=== PATIENT | female | born 1990 | race Caucasian/White ===

== ENCOUNTER 2021-05-12 15:18 | Day surgery (SDC) | payer BC ==
[2021-05-12] MEDS ORDERED: hydrALAZINE 20 MG/ML VIAL SLOW IVP PRN (16:01)
[2021-05-12 16:27] LABS: Bilirubin Neg (Negative); Blood, Urine 25 (Negative); Clarity Clear (Clear); Glucose, Urine (Dipstick) Normal (Negative); Ketone, Urine Negative (Negative); Leukocyte Negative (Negative); Nitrite Negative (Negative); Protein, Urine (Dipstick) Negative (Neg-Trace); Specific Gravity, Urine 1.005 (1.002-1.036); Urobilinogen Normal mg/dL (Less than 2); pH, Urine 6.5 (5.0-9.0)
[2021-05-12] MEDS ORDERED: Ondansetron ODT 8 MG TAB SL SCH (16:30)
[2021-05-12 16:32] LABS: Urine Culture Reflex No No
[2021-05-12 16:34] LABS: Bacteria/HPF 1+ HPF (None Seen); RBC/HPF 0-3 HPF (0-3); Squamous Epithelial 0-3 HPF (0-3); WBC/HPF 0-3 HPF (0-3)
[2021-05-12] MEDS ORDERED: Ondansetron ODT 4 MG TAB PO SCH (17:00)
[2021-05-12] MEDS ORDERED: Morphine 4 MG/ML VIAL SLOW IVP SCH (17:30)
[2021-05-12] MEDS ORDERED: Morphine 4 MG/ML VIAL IM SCH (17:45)
[2021-05-12] MEDS ORDERED: Morphine 4 MG/ML VIAL ONE (17:52)
== END 2021-05-12 18:34 | disposition home or self-care (01) ==
LOC: CSHLD/OP 15:18
PROVIDERS: ATTEND Student in an Organized Health Care Education/Training Program
DX: O99.891 Other specified diseases and conditions complicating pregnancy (principal); N13.30 Unspecified hydronephrosis; R30.0 Dysuria; M54.9 Dorsalgia, unspecified; Z3A.21 21 weeks gestation of pregnancy
CPT/HCPCS: 76770; 81001; 87086; 96372; 99282; J2270; Q0162

== ENCOUNTER 2021-09-06 13:26 | Outpatient (CLI) | payer BC ==
[2021-09-07 14:16] LABS: SARS-CoV-2 PCR by NAA Not Detected (NotDetected)
== END 2021-09-06 13:27 | disposition home or self-care (01) ==
LOC: CSHLAB 13:26
PROVIDERS: ATTEND Student in an Organized Health Care Education/Training Program
DX: Z20.822 Contact with and (suspected) exposure to COVID-19 (principal)
CPT/HCPCS: U0003; U0005

== ENCOUNTER 2021-09-11 05:30 | Inpatient (IN) | payer BC ==
[2021-09-11 06:20] VITALS: BMI 28.4
[2021-09-11] MEDS ORDERED: NS w/ Oxytocin 30 units 500 ML ONE (07:08)
[2021-09-11] MEDS ORDERED: Penicillin G Potassium 5 MILL.UNITS VIAL ONE (07:15)
[2021-09-11] MEDS ORDERED: Acetaminophen 500 MG TAB PO PRN (07:23)
[2021-09-11] MEDS ORDERED: Ondansetron PF 4 MG/2 ML Vial IVP PRN ×3 (07:23→17:02)
[2021-09-11] MEDS ORDERED: HYDROcodone/Acetaminophen 5/325 mg Tablet PO PRN ×3 (07:23→17:02)
[2021-09-11] MEDS ORDERED: Promethazine HCl 25 MG/ML VIAL IM PRN ×3 (07:23→17:02)
[2021-09-11] MEDS ORDERED: Methylergonovine 0.2 MG/ML VIAL IM PRN (07:23)
[2021-09-11] MEDS ORDERED: Butorphanol Tartrate 1 MG/ML VIAL SLOW IVP PRN (07:23)
[2021-09-11] MEDS ORDERED: Lidocaine 1% (PF) 30 ML VIAL SC PRN (07:23)
[2021-09-11] MEDS ORDERED: Diphenoxylate HCl/Atropine Tablet PO PRN (07:23)
[2021-09-11] MEDS ORDERED: hydrALAZINE 20 MG/ML VIAL SLOW IVP PRN ×2 (07:23→17:02)
[2021-09-11] MEDS ORDERED: Misoprostol 200 MCG TAB PR PRN (07:23)
[2021-09-11] MEDS ORDERED: Carboprost 250 MCG/ML AMP IM PRN (07:23)
[2021-09-11] MEDS ORDERED: Ibuprofen 800 MG TAB PO PRN (07:23)
[2021-09-11] MEDS ORDERED: Lactated Ringer's 1,000 ML IV SCH (07:30)
[2021-09-11] MEDS ORDERED: NS w/ Oxytocin 30 units 500 ML IVPB SCH (07:30)
[2021-09-11] MEDS ORDERED: NS w/ Oxytocin 30 units 500 ML IV SCH (07:30)
[2021-09-11] MEDS ORDERED: Fentanyl 2 mcg/Bup 0.1% Cadd 100 ML ONE (08:33)
[2021-09-11 08:35] LABS: Hemoglobin 11.9 g/dL (12.0-15.5); Mean Corpuscular Hemoglobin 26.5 pg (27.0-33.0); Mean Corpuscular Volume 80.4 fl (81.6-98.3); Mean Platelet Volume 10.8 fl (7.4-10.4); Platelet Count 271 10x3/uL (150-450); RBC Distribution Width 13.1 % (11.5-14.5); Red Blood Cell (RBC) Count 4.49 10x6/uL (3.90-5.03); White Blood Cell (WBC) Count 13.4 10x3/uL (3.5-10.5)
[2021-09-11 09:18] LABS: Syphilis Antibody Nonreactive (Nonreactive); Syphilis Antibody Index 0.02 S/CO (<1.00 Non-Reactive)
[2021-09-11 09:19] LABS: Hep B Surf Ag Non-Reactive S/CO (NonReactive)
[2021-09-11 09:20] LABS: HBSAg Index 0.17 S/CO (0-0.99)
[2021-09-11] MEDS ORDERED: ePHEDrine Sulfate 50 MG/10 ML VIAL SLOW IVP PRN (09:30)
[2021-09-11] MEDS ORDERED: Fentanyl 2 mcg/Bupivacaine 0.1% Cassette 100 ML EPIDURAL SCH (09:30)
[2021-09-11] MEDS ORDERED: Lactated Ringer's 500 ML IV PRN (09:30)
[2021-09-11] MEDS ORDERED: diphenhydrAMINE 50 MG/ML VIAL IVP PRN (09:30)
[2021-09-11] MEDS ORDERED: Hydrocerin (Eucerin) Cream 120 gm Jar TOP PRN (09:30)
[2021-09-11] MEDS ORDERED: Acetaminophen 325 MG TAB PO PRN (09:30)
[2021-09-11] MEDS ORDERED: Naloxone HCl 0.4 mg/ml Vial IVP PRN ×2 (09:30)
[2021-09-11] MEDS ORDERED: Communication Order-Pharmacy FS SCH (09:30)
[2021-09-11] MEDS ORDERED: Penicillin G Potassium 5 MILL.UNITS in Sodium Chloride 0.9% 100 ML IVPB SCH (12:30)
[2021-09-11] MEDS ORDERED: Bupivacaine/Epinephrine 0.25% 30 ML VIAL ONE (14:25)
[2021-09-11] MEDS ORDERED: ePHEDrine Sulfate 50 MG/10 ML VIAL ONE (14:25)
[2021-09-11] MEDS ORDERED: Pen G 2.5 MILL.UNITS/50 ML BAG IVPB SCH (16:30)
[2021-09-11] MEDS ORDERED: Benzocaine-Menthol 82.5 ML CAN TOP PRN (17:02)
[2021-09-11] MEDS ORDERED: Boostrix 0.5 ML (Tdap) VIAL IM ONE (17:02)
[2021-09-11] MEDS ORDERED: Bisacodyl 10 MG SUPP PR PRN (17:02)
[2021-09-11] MEDS ORDERED: Lanolin Ointment 7 GM TUBE TOP PRN (17:02)
[2021-09-11] MEDS ORDERED: diphenhydrAMINE 25 MG CAP PO PRN (17:02)
[2021-09-11] MEDS ORDERED: Preparation H Ointment 28 GM TUBE PR PRN (17:02)
[2021-09-11] MEDS ORDERED: Milk Of Magnesia 30 ML UDCUP PO PRN (17:02)
[2021-09-11] MEDS ORDERED: Zolpidem Tartrate 5 MG TAB PO PRN (17:02)
[2021-09-11] MEDS: Ferrous Sulfate 325 MG TAB PO SCH (18:36)
[2021-09-11] MEDS: Acetaminophen 500 MG TAB PO PRN (19:57)
[2021-09-11] MEDS: Ibuprofen 800 MG TAB PO SCH (21:14)
[2021-09-11] MEDS: Docusate Calcium (SURFAK) 240 MG CAP PO SCH (21:14)
[2021-09-12] MEDS: Acetaminophen 500 MG TAB PO PRN ×2 (04:48→17:07)
[2021-09-12 05:27] LABS: Hemoglobin 9.9 g/dL (12.0-15.5)
[2021-09-12] MEDS: Ibuprofen 800 MG TAB PO SCH ×3 (06:04→21:57)
[2021-09-12] MEDS: Docusate Calcium (SURFAK) 240 MG CAP PO SCH ×2 (09:01→21:56)
[2021-09-12] MEDS: Ferrous Sulfate 325 MG TAB PO SCH ×2 (09:01→17:07)
[2021-09-12] MEDS: Prenatal Vitamin 1 TAB PO SCH (09:03)
[2021-09-13] MEDS: Ibuprofen 800 MG TAB PO SCH ×2 (06:11→15:12)
[2021-09-13] MEDS: Ferrous Sulfate 325 MG TAB PO SCH (07:39)
[2021-09-13] MEDS: Prenatal Vitamin 1 TAB PO SCH (07:39)
[2021-09-13] MEDS: Docusate Calcium (SURFAK) 240 MG CAP PO SCH (07:39)
[2021-09-13 16:50] VITALS: BP 130/77; TEMP 98.4
== END 2021-09-13 07:18 | disposition home or self-care (01) | DRG 807 ==
LOC: CSHLD 05:48 → CSHPED 18:20
PROVIDERS: ADMIT Student in an Organized Health Care Education/Training Program; ATTEND Student in an Organized Health Care Education/Training Program
PROC: 10E0XZZ Delivery of Products of Conception, External Approach (ICD-10-PCS; principal; 2021-09-11)
DX: O62.2 Other uterine inertia (principal); Z37.0 Single live birth; Z3A.39 39 weeks gestation of pregnancy; O90.81 Anemia of the puerperium; D50.0 Iron deficiency anemia secondary to blood loss (chronic)
CPT/HCPCS: 36415; 51702; 85014; 85018; 85027; 86780; 86850; 86900; 86901; 87340; J2210; J2540; J2590

== ENCOUNTER 2023-07-06 09:16 | Emergency (ER) | payer BC ==
[2023-07-06 10:48] LABS: #Monocytes 0.3 10x3/uL (0.0-1.1); %Basophils 0.1 % (0.0-2.0); %Eosinophils 0.1 % (0.0-6.0); %Lymphocytes 1.5 % (18.0-47.0); %Monocytes 1.8 % (0.0-10.0); %Neutrophils 96.1 % (40.0-75.0); Hematocrit 39.1 % (34.9-44.5); Hemoglobin 13.4 g/dL (12.0-15.5); Mean Corpuscular HGB CONC 34.3 g/dL (32.0-36.0); Mean Corpuscular Hemoglobin 28.9 pg (27.0-33.0); Mean Corpuscular Volume 84.4 fl (81.6-98.3); Mean Platelet Volume 9.7 fl (7.4-10.4); Platelet Count 287 10x3/uL (150-450); RBC Distribution Width 13.2 % (11.5-14.5); Red Blood Cell (RBC) Count 4.63 10x6/uL (3.90-5.03); White Blood Cell (WBC) Count 18.7 10x3/uL (3.5-10.5)
[2023-07-06 11:09] LABS: ALT (SGPT) 12 U/L (8-55); AST (SGOT) 15 U/L (5-34); Albumin 3.8 g/dL (3.5-5.0); Alkaline Phosphatase 56 U/L (40-110); Anion Gap 16 mmol/L (10-20); BUN (Urea Nitrogen) 11 mg/dL (7.0-18.7); Bilirubin, Total 0.5 mg/dL (0.2-1.2); Calc. Creatinine Clearance 0 mL/min (70-130); Calcium 8.4 mg/dL (7.8-10.44); Carbon Dioxide 20 mmol/L (22-29); Chloride 103 mmol/L (98-107); Estimated GFR 118; Globulin 2.7 g/dL (2.4-3.5); Glucose 107 mg/dL (70-105); Potassium 3.8 mmol/L (3.5-5.1); Protein, Total 6.5 g/dL (6.0-8.3); Sodium 135 mmol/L (136-145)
[2023-07-06 11:32] LABS: Bilirubin Neg (Negative); Blood, Urine 25 (Negative); Clarity Slightly Cloudy (Clear); Glucose, Urine (Dipstick) Normal (Negative); Ketone, Urine 150 mg/dL (Negative); Leukocyte Negative (Negative); Nitrite Negative (Negative); Protein, Urine (Dipstick) 30 mg/dl (Neg-Trace); Specific Gravity, Urine 1.025 (1.005-1.030); Urobilinogen Normal mg/dL (Less than 2)
[2023-07-06] MEDS ORDERED: Ondansetron PF 4 MG/2 ML Vial ONE (11:36)
[2023-07-06 11:45] LABS: CAUTI Indications for Culture Dysuria,urgency,freq; RBC/HPF None Seen HPF (0-3); WBC/HPF 0-3 HPF (0-3)
[2023-07-06 11:46] LABS: Bacteria/HPF None Seen HPF (None Seen)
[2023-07-06 11:47] LABS: Urine Culture Reflex No No
== END 2023-07-06 14:10 | disposition home or self-care (01) ==
LOC: CSHERS 09:16
DX: O21.2 Late vomiting of pregnancy (principal); Z3A.21 21 weeks gestation of pregnancy
CPT/HCPCS: 36415; 80053; 81001; 85025; 96361; 96374; J2405

== ENCOUNTER 2023-09-12 23:47 | Day surgery (SDC) | payer BC | END 2023-09-13 03:20 | disposition home or self-care (01) | LOC: CSHLD/OP 23:47 | PROVIDERS: ATTEND Student in an Organized Health Care Education/Training Program | DX: O46.93 Antepartum hemorrhage, unspecified, third trimester (principal); Z3A.31 31 weeks gestation of pregnancy; Z79.899 Other long term (current) drug therapy | CPT/HCPCS: 76819; 99282 ==

== ENCOUNTER 2023-11-09 05:30 | Inpatient (IN) | payer BC ==
[2023-11-09 06:49] VITALS: BMI 27.0
[2023-11-09 07:16] LABS: Glucose 86 mg/dL (70-105)
[2023-11-09] MEDS ORDERED: Promethazine HCl 25 MG/ML VIAL IM PRN ×3 (07:22→20:40)
[2023-11-09] MEDS ORDERED: Diphenoxylate HCl/Atropine Tablet PO PRN (07:22)
[2023-11-09] MEDS ORDERED: Misoprostol 200 MCG TAB PR PRN (07:22)
[2023-11-09] MEDS ORDERED: Carboprost 250 MCG/ML AMP IM PRN (07:22)
[2023-11-09] MEDS ORDERED: Lidocaine 1% (PF) 30 ML VIAL SC PRN (07:22)
[2023-11-09] MEDS ORDERED: Ondansetron PF 4 MG/2 ML Vial IVP PRN ×3 (07:22→20:40)
[2023-11-09] MEDS ORDERED: hydrALAZINE 20 MG/ML VIAL SLOW IVP PRN ×2 (07:22→20:40)
[2023-11-09] MEDS ORDERED: HYDROcodone/Acetaminophen 5/325 mg Tablet PO PRN ×3 (07:22→20:40)
[2023-11-09] MEDS ORDERED: Methylergonovine 0.2 MG/ML VIAL IM PRN (07:22)
[2023-11-09] MEDS ORDERED: fentaNYL 50 mcg/mL 1 mL Vial SLOW IVP PRN (07:22)
[2023-11-09] MEDS ORDERED: Acetaminophen 500 MG TAB PO PRN (07:22)
[2023-11-09] MEDS ORDERED: Ibuprofen 800 MG TAB PO PRN (07:22)
[2023-11-09] MEDS ORDERED: Oxytocin 30 units/NS 500 ML 500 ML IV SCH (07:30)
[2023-11-09] MEDS: Lactated Ringer's 1,000 ML IV SCH (07:43)
[2023-11-09] MEDS: Oxytocin 30 units/NS 500 ML 500 ML IV SCH (07:44)
[2023-11-09 07:45] LABS: Hematocrit 40.3 % (34.9-44.5); Hemoglobin 13.8 g/dL (12.0-15.5); Mean Corpuscular HGB CONC 34.2 g/dL (32.0-36.0); Mean Corpuscular Hemoglobin 28.7 pg (27.0-33.0); Mean Corpuscular Volume 83.8 fl (81.6-98.3); Mean Platelet Volume 10.2 fl (7.4-10.4); Platelet Count 256 10x3/uL (150-450); RBC Distribution Width 13.9 % (11.5-14.5); Red Blood Cell (RBC) Count 4.81 10x6/uL (3.90-5.03); White Blood Cell (WBC) Count 11.3 10x3/uL (3.5-10.5)
[2023-11-09] MEDS: Penicillin G Potassium 5 MILL.UNITS in Sodium Chloride 0.9% 100 ML IVPB SCH (07:48)
[2023-11-09] MEDS ORDERED: Bupivacaine 0.25% HCL 30 ML VIAL ONE (08:00)
[2023-11-09 08:16] LABS: HBSAg Index 0.29 S/CO (0-0.99); Hep B Surf Ag - L&D Non-Reactive S/CO (NonReactive)
[2023-11-09 08:17] LABS: Syphilis Antibody Nonreactive (Nonreactive); Syphilis Antibody Index 0.04 S/CO (<1.00 Non-Reactive)
[2023-11-09] MEDS ORDERED: Naloxone HCl 0.4 mg/ml Vial IVP PRN ×2 (13:10)
[2023-11-09] MEDS ORDERED: diphenhydrAMINE 50 MG/ML VIAL IVP PRN (13:10)
[2023-11-09] MEDS ORDERED: Acetaminophen 325 MG TAB PO PRN (13:10)
[2023-11-09] MEDS ORDERED: ePHEDrine Sulfate 50 MG/10 ML VIAL SLOW IVP PRN (13:10)
[2023-11-09] MEDS ORDERED: Moisturizing Cream (Eucerin) 113 GM JAR TOP PRN (13:10)
[2023-11-09] MEDS ORDERED: Lactated Ringer's 500 ML IV PRN (13:10)
[2023-11-09] MEDS ORDERED: Communication Order-Pharmacy FS SCH (13:15)
[2023-11-09] MEDS: Penicillin G 2.5 MILL.units 2.5 MILL.UNITS in Premix 1 BAG IVPB SCH (13:26)
[2023-11-09] MEDS: fentaNYL 2 mcg/Ropivacaine 0.2% Epidural 100 ML CADD EPIDURAL SCH (13:38)
[2023-11-09] MEDS ORDERED: Lanolin Ointment 7 GM TUBE TOP PRN (20:40)
[2023-11-09] MEDS ORDERED: diphenhydrAMINE 25 MG CAP PO PRN (20:40)
[2023-11-09] MEDS ORDERED: Preparation H Ointment 28 GM TUBE PR PRN (20:40)
[2023-11-09] MEDS ORDERED: Bisacodyl 10 MG SUPP PR PRN (20:40)
[2023-11-09] MEDS ORDERED: Boostrix 0.5 ML (Tdap) VIAL (>/=7 yrs of age) IM ONE (20:40)
[2023-11-09] MEDS ORDERED: Benzocaine-Menthol 82.5 ML CAN TOP PRN (20:40)
[2023-11-09] MEDS ORDERED: Milk Of Magnesia 30 ML UDCUP PO PRN (20:40)
[2023-11-09] MEDS: Ibuprofen 800 MG TAB PO SCH (21:22)
[2023-11-09] MEDS: Docusate 100 MG CAP PO SCH (21:22)
[2023-11-09] MEDS: fentaNYL/Ropivacaine Epidural 100 ML ONE (22:28)
[2023-11-10] MEDS: Ferrous Sulfate 325 MG TAB PO SCH (07:20)
[2023-11-10] MEDS: Prenatal Vitamin 1 TAB PO SCH (09:39)
[2023-11-11 08:03] VITALS: BP 108/70; TEMP 97.8
== END 2023-11-11 11:30 | disposition home or self-care (01) | DRG 807 ==
LOC: CSHLD 05:46 → CSHPP 18:43
PROVIDERS: ADMIT Student in an Organized Health Care Education/Training Program; ATTEND Student in an Organized Health Care Education/Training Program
PROC: 10E0XZZ Delivery of Products of Conception, External Approach (ICD-10-PCS; principal; 2023-11-09)
PROC: 10907ZC Drainage of Amniotic Fluid, Therapeutic from Products of Conception, Via Natural or Artificial Opening (ICD-10-PCS; 2023-11-09)
PROC: 3E033XZ Introduction of Vasopressor into Peripheral Vein, Percutaneous Approach (ICD-10-PCS; 2023-11-09)
DX: O24.420 Gestational diabetes mellitus in childbirth, diet controlled (principal); Z37.0 Single live birth; O99.824 Streptococcus B carrier state complicating childbirth; Z3A.39 39 weeks gestation of pregnancy
CPT/HCPCS: 51702; 82947; 85027; 86780; 86850; 86900; 86901; 87340; J0665; J2540; J2590; J3490; J7120